=== PATIENT | male | born 1945 | race Caucasian/White ===

== ENCOUNTER 2016-11-05 16:52 | Observation (INO) ==
--- NOTE | 2016-11-05 17:02 | Emergency Department Note ---
Disposition Clinical Impression: Weakness Altered mental status Qualifiers: Altered mental status type: unspecified Qualified Code(s): R41.82 - Altered mental status, unspecified Disposition: Admitted As Inpatient Condition: Fair Time of Disposition: 19:31 General Adult HPI - General Chief complaint: ED Chest Pain Stated complaint: chest pain Time Seen by Provider: 11/05/16 16:56 Source: patient Mode of arrival: ambulatory Limitations: no limitations Nursing Notes Reviewed: Yes Vital Signs Reviewed: Yes - History of Present Illness HPI Narrative: This patient is a 71-year-old male who arrived by squad he has a past medical history of a stroke in 2009 that left him with residual left-sided weakness who presents with a complaint of worsening weakness. The patient initially stated that he had new onset of these symptoms one hour ago. However when his arrived to the emergency department she states that the patient was at home when he had a new sided weakness on the right side and she states that he has also been less talkative as usual and he has been leaning towards the right however this has been going on for at least 1 month. Therefore, originally a stroke alert was called, however with further information available through the patient's when she arrived we canceled the stroke alert due to the symptoms having been going on for longer than expected. The patient's states that she went to wake him up from a nap at p.m. this afternoon and he stated that he is not able to get up to use restroom which normally he is capable. She states last time she saw him normal was at 1 AM. However, she states that he had has not been as talkative is also been acting not himself for the past week as far as having casual conversation she states she has also been leaning more towards his right to the point where she thinks she is going to fall out of his chair and this has been going on for at least 4 weeks. She also complains of them having a cough for the past 6 months. - Related Data Home Medications Medication Instructions Recorded Confirmed Carvedilol [Coreg] 6.25 mg PO BIDWM 11/05/16 11/05/16 Citalopram [CeleXA] 20 mg PO DAILY 11/05/16 11/05/16 Clopidogrel [Plavix] 75 mg PO DAILY 11/05/16 11/05/16 Diltiazem [Cardizem] 30 mg PO Q8HR 11/05/16 11/05/16 Divalproex (24 HR) [Depakote ER 1,500 mg PO HS 11/05/16 11/05/16 (24 HR)] Famotidine [Pepcid] 20 mg PO DAILY 11/05/16 11/05/16 Fesoterodine Fumarate [Toviaz] 8 mg PO DAILY 11/05/16 11/05/16 Isosorbide MONOnitrate (24 HR) 30 mg PO DAILY 11/05/16 11/05/16 [Imdur] Nitroglycerin [Nitrostat] 0.4 mg SL AD PRN 11/05/16 11/05/16 Oxycodone HCl/Acetaminophen 1 tab PO QID 11/05/16 11/05/16 [Percocet 10-325 mg Tablet] Simvastatin [Zocor] 20 mg PO HS 11/05/16 11/05/16 metFORMIN [Glucophage] 500 mg PO BIDWM 11/05/16 11/05/16 Allergies Allergy/AdvReac Type Severity Reaction Status Date / Time lisinopril AdvReac Cough Verified 11/05/16 17:35 All systems ED: reviewed and negative except as stated. Constitutional: Reports: as per HPI. Denies: fever, chills ENT ED: Denies: hearing loss Cardiovascular: Reports: chest pain (Patient state he is having chest pain and the squad however in the emergency department the patient denies any chest pain. ). Denies: palpitations, dyspnea on exertion Respiratory: Reports: cough. Denies: dyspnea, wheezes Gastrointestinal: Denies: abdominal pain, nausea, vomiting Genitourinary: Denies: urgency, dysuria, frequency Musculoskeletal: Denies: back pain, neck pain Integumentary: Denies: rash Neurological: Denies: headache, weakness Physical Exam Patient is [id number] male here appears his stated age. He is in no acute distress. He is able to answer my questions appropriately. - General Limitations: no limitations General appearance: alert, in no apparent distress - Head Head exam: atraumatic, normocephalic, normal inspection - Eye Eye exam: Present: normal appearance, PERRL, EOMI - ENT ENT exam: normal exam, normal oropharynx, mucous membranes moist - Neck Neck exam: Present: normal inspection, full ROM, trachea midline - Chest Chest inspection: Present: normal inspection, symmetric chest wall rise. Absent : tenderness - Respiratory Respiratory exam: Present: normal lung sounds bilaterally. Absent: respiratory distress, wheezes, stridor - Cardiovascular Cardiovascular exam: Present: regular rate, normal rhythm, normal heart sounds - Abdominal Exam Abdominal exam: Present: soft, Non-Tender, normal bowel sounds - Extremities Exam Extremities exam: Present: full ROM, normal capillary refill. Absent: tenderness, pedal edema, calf tenderness - Expanded Lower Extremity Exam Neurovascular/Tendon exam: Present: normal capillary refill, motor deficit. Absent: pulse deficit, sensory deficit, extremity cold to touch, pallor - Back Exam Back exam: Present: normal inspection, full ROM. Absent: tenderness - Neurological Exam Neurological exam: Present: alert, oriented X3, CN II-XII intact - Expanded Neurological Exam Patient oriented to: Present: person, place, time Speech: Present: fluid speech Cranial nerves: EOM function (II, III, IV, ): Normal, facial sensation (V): Normal, facial palsy (VII): Normal, gag reflex (IX): Normal, spinal accessory function (XI): Normal, tongue deviation (XII): Normal Cerebellar function: finger to nose: Normal, heel to chamberlain: Normal Motor strength - LUE: 3/5 Motor strength - RUE: 5/5 Motor strength - LLE: 3/5 Motor strength - RLE: 5/5 Upper motor neuron exam: katey neglect: Absent bilaterally, pronator drift: Absent bilaterally Sensory exam upper extremity: light touch: Normal Sensory exam lower extremity: light touch: Normal DTR: bicep (L): 2+, bicep (R): 2+, patellar (L): 2+, patellar (R): 2+ Coma Scale Eye Opening: Spontaneous Coma Scale Motor Response: Obeys Commands Coma Scale Verbal Response: Oriented Coma Scale Total: 15 - Psychiatric Psychiatric exam: Present: normal mood, flat affect - Skin Skin exam: Present: warm, dry, intact, normal color Course Course Narrative: Stroke Alert called at 16:54. NIH Score - Reevaluation(s) Reevaluation #1: Stroke alert was canceled due to unknown onset time of complaint. Patient is a 71-year-old male presents to emergency department by squad. The patient initially presented with new onset left-sided extremity weakness onset at 4 PM. Patient's arrived at about 5 PM. She states that when she woke the patient up from sleep at 3 PM he was unable to get out of bed and stated that his right side is weak. Last time he was seen walking was at 1 AM this morning however his said that for the past 4 weeks the patient has been having some confusion with decreased talking and he has also been leaning towards his right side to the point where she believes is going to fall out of his chair or off his scooter. SARS is physical exam findings I only appreciated left-sided upper and lower extremity weakness that is about a 3 out of 5, however the patient states that this is a side is affected by previous stroke in 2010. Time: 18:06 Reevaluation #2: Discuss the labs and imaging results with the patient and patient's . Discussed the plan to have him admitted for further evaluation of his altered mental status and weakness. The agrees with the plan. Time: 19:30 Reevaluation #3: I spoke with Dr. Perez, we discussed the patient's case and he agrees to admit the patient. Time: 19:30 - Consultations Consultation #1: The of the patient provided me with her phone number: House: [phone] Cell [phone] Vital Signs Temperature 98.4 F 11/05/16 16:55 Pulse Rate 65 11/05/16 16:55 Respiratory Rate 20 11/05/16 16:55 Blood Pressure 135/49 11/05/16 16:55 O2 Sat by Pulse Oximetry 94 11/05/16 16:55 Temperature 97.8 F 11/05/16 20:27 Pulse Rate 60 11/05/16 20:23 Respiratory Rate 20 11/05/16 20:27 Blood Pressure 136/90 11/05/16 20:27 O2 Sat by Pulse Oximetry 97 11/05/16 19:22 Oxygen Delivery Oxygen Delivery Nasal Cannula Medical Decision Making - Medical Records Medical records reviewed: Yes I reviewed the patient's medical records. - Lab Data Lab results reviewed: Yes I reviewed the patient's lab results. Result diagrams: 11/05/16 17:05 11/05/16 17:05 Lab Results 11/05/16 11/05/16 11/05/16 Range/Units 17:05 17:05 17:05 WBC 4.9 (4.3-11.1) K/mcL RBC 4.52 (4.19-5.50) M/mcL Hgb 13.2 (12.9-16.9) g/dL Hct 38.5 (37.5-50.1) % MCV 85.2 (83.0-100.0) fL MCH 29.2 (28.0-33.3) pg MCHC 34.3 (31.6-35.5) g/dL RDW 13.1 (11.5-14.5) % Plt Count 120 L (140-400) K/mcL MPV 10.1 (9.4-12.4) fL Immature Gran % 0.2 (0-4) % Seg Neutrophils % 63.2 % Lymphocytes % 20.2 % Monocytes % 13.2 % Eosinophils % 2.6 % Basophils % 0.6 % Neutrophils # 3.1 (1.6-8.9) K/mcL Lymphocytes # 1.0 (0.6-4.6) K/mcL Monocytes # 0.7 (0.0-1.3) K/mcL Eosinophils # 0.1 (0.0-0.6) K/mcL Basophils # 0.0 (0.0-0.2) K/mcL PT (9.4-12.1) Seconds INR APTT (26.0-36.0) Seconds Sodium 138 (136-145) mEq/L Potassium 4.6 H (3.5-4.5) mEq/L Chloride 106 (98-109) mEq/L Carbon Dioxide 24 (19-29) mEq/L BUN 19 (8-26) mg/dL Creatinine 1.01 (0.72-1.25) mg/dL Est GFR ( Amer) > 60 (> 60) Est GFR (Non-Af Amer) > 60 (> 60) BUN/Creatinine Ratio 19 (6-26) Glucose 94 (70-99) mg/dL Calculated Osmolality 288 (280-300) Calcium 8.8 (8.6-10.8) mg/dL Troponin I 0.00 (0-0.03) ng/mL Urine Color (Yellow) Urine Clarity (Clear) Urine pH (5.0-8.0) pH Units Ur Specific [place] (1.010-1.025) Urine Protein (Neg-Trace) mg/dL Urine Glucose (UA) (Normal) mg/dL Urine Ketones (Negative) mg/dL Urine Blood (Negative) Urine Nitrite (Negative) Urine Bilirubin (Negative) Urine Urobilinogen (Normal) mg/dL Ur Leukocyte Esterase (Negative) Ur Culture Indicated? (NO) 11/05/16 11/05/16 Range/Units 17:23 18:32 WBC (4.3-11.1) K/mcL RBC (4.19-5.50) M/mcL Hgb (12.9-16.9) g/dL Hct (37.5-50.1) % MCV (83.0-100.0) fL MCH (28.0-33.3) pg MCHC (31.6-35.5) g/dL RDW (11.5-14.5) % Plt Count (140-400) K/mcL MPV (9.4-12.4) fL Immature Gran % (0-4) % Seg Neutrophils % % Lymphocytes % % Monocytes % % Eosinophils % % Basophils % % Neutrophils # (1.6-8.9) K/mcL Lymphocytes # (0.6-4.6) K/mcL Monocytes # (0.0-1.3) K/mcL Eosinophils # (0.0-0.6) K/mcL Basophils # (0.0-0.2) K/mcL PT 12.1 (9.4-12.1) Seconds INR 1.1 APTT 25.2 L (26.0-36.0) Seconds Sodium (136-145) mEq/L Potassium (3.5-4.5) mEq/L Chloride (98-109) mEq/L Carbon Dioxide (19-29) mEq/L BUN (8-26) mg/dL Creatinine (0.72-1.25) mg/dL Est GFR ( Amer) (> 60) Est GFR (Non-Af Amer) (> 60) BUN/Creatinine Ratio (6-26) Glucose (70-99) mg/dL Calculated Osmolality (280-300) Calcium (8.6-10.8) mg/dL Troponin I (0-0.03) ng/mL Urine Color Yellow (Yellow) Urine Clarity Clear (Clear) Urine pH 7.0 (5.0-8.0) pH Units Ur Specific [place] 1.018 (1.010-1.025) Urine Protein Negative (Neg-Trace) mg/dL Urine Glucose (UA) Normal (Normal) mg/dL Urine Ketones Trace H (Negative) mg/dL Urine Blood Negative (Negative) Urine Nitrite Negative (Negative) Urine Bilirubin Negative (Negative) Urine Urobilinogen 2.0 H (Normal) mg/dL Ur Leukocyte Esterase Negative (Negative) Ur Culture Indicated? NO (NO) - Radiology Data Radiology results reviewed: Yes I reviewed the patient's radiology results. Head CT 11/05/16 16:59 IMPRESSION: 1. Encephalomalacia within the right middle cerebral artery distribution. 2. No acute abnormality detected. 3. Extensive periventricular low-attenuation, which presumably is secondary to chronic small vessel ischemic disease. No comparisons are available. Findings were discussed with Dr. Gayle At 2:16 pm on 11/05/2016. D/ / Vaibhav Higginbotham MD / Vaibhav Higginbotham MD Interpreting Provider: Vaibhav Higginbotham MD Chest X-Ray 11/05/16 18:00 IMPRESSION: No acute cardiopulmonary disease. D/ / 11/05/2016 18:17:12 Ray Pacheco MD / raven Interpreting Provider: Ray Pacheco MD - EKG Data EKG #1 EKG attestation: Yes I reviewed and interpreted this EKG. EKG results narrative: Interpreted this EKG. Performed at 16:54. EKG is electronic atrial pacemaker. Rate of 60 bpm. Borderline left axis deviation. No signs of ST elevation or depression or Q waves. Attestation Statement - Attestation Attestation: I examined this patient and my medical decision-making was reviewed with the Resident Physician. I agree with the documented findings, disposition and treatment plan as described except to the extent set forth below. Patient presents to the emergency department that she complete the left side weakness. Patient states one hour prior to his arrival here he was walking to the bathroom. It is sudden onset of increased weakness in the left side. He has had this stroke on that side several years ago. He has a chronic weakness in that arm and leg but states it got worse. Patient denies chest pain. Denies dizziness. Examination shows him awake alert in no acute distress. He does have visible weakness in the left side. He complains of a sensory discrepancy. He does drift her to bed in upper and lower extremities. It is difficult to ascertain if this is all new chronic worsening of his chronic weakness. Plan. The patient states the dyspnea. Stroke alert was called. CT and neuro consult pending. Head CT does not show an acute process. He has encephalomalacia on the right side in the MCA distribution from prior stroke. Neuro consult pending. The patient's arrived after stroke alert was called. She states the symptoms of been present for days. She states she was okay when he went to bed around 1 AM but he did not get out of bed until after 3 today and she had awaken him up. The symptoms were present upon awakening. They did not happen while he was walking to the bathroom. He complained of right-sided weakness to her. The patient admitted for further workup. Patient would not be a TPA candidate as his symptoms appear chronic and his last known well was over 12 hours ago. 35 minutes of critical care exclusive of separately billable procedures.
[2016-11-05 17:14] LABS: Basophils % 0.6 %; Eosinophils # 0.1 K/mcL (0.0-0.6); Eosinophils % 2.6 %; Hematocrit 38.5 % (37.5-50.1); Hemoglobin 13.2 g/dL (12.9-16.9); Immature Granulocytes % 0.2 % (0-4); Lymphocytes % 20.2 %; Mean Corpuscular HGB Conc 34.3 g/dL (31.6-35.5); Mean Corpuscular Hemoglobin 29.2 pg (28.0-33.3); Mean Corpuscular Volume 85.2 fL (83.0-100.0); Mean Platelet Volume 10.1 fL (9.4-12.4); Monocytes # 0.7 K/mcL (0.0-1.3); Monocytes % 13.2 %; Neutrophils # 3.1 K/mcL (1.6-8.9); Platelet Count 120 K/mcL (140-400); Red Blood Count 4.52 M/mcL (4.19-5.50); Red Cell Distribution Width 13.1 % (11.5-14.5); Segmented Neutrophils % 63.2 %
[2016-11-05 17:27] LABS: BUN/Creatinine Ratio 19 (6-26); Blood Urea Nitrogen 19 mg/dL (8-26); Calcium 8.8 mg/dL (8.6-10.8); Carbon Dioxide 24 mEq/L (19-29); Chloride 106 mEq/L (98-109); Glucose 94 mg/dL (70-99); Osmolality,Calculated 288 (280-300); Potassium 4.6 mEq/L (3.5-4.5); Sodium 138 mEq/L (136-145); eGFR For African Americans > 60 (> 60); eGFR For Non-African Americans > 60 (> 60)
[2016-11-05 17:40] LABS: INR 1.1; Prothrombin Time 12.1 Seconds (9.4-12.1)
[2016-11-05 17:42] LABS: Activated Partial Thrombo Time 25.2 Seconds (26.0-36.0)
[2016-11-05 18:52] LABS: Bilirubin,Urine Negative (Negative); Blood,Urine Negative (Negative); Clarity,Urine Clear (Clear); Color,Urine Yellow (Yellow); Glucose,Urine (UA) Normal (Normal); Ketones,Urine Trace mg/dL (Negative); Leukocyte Esterase,Urine Negative (Negative); Nitrite,Urine Negative (Negative); Protein,Urine Negative (Neg-Trace); Specific Gravity,Urine 1.018 (1.010-1.025)
[2016-11-05] MEDS ORDERED: Acetaminophen 325 MG TABLET PO PRN (20:31)
[2016-11-05] MEDS ORDERED: *HR* Morphine 2 MG/ML SYRINGE IVP PRN (20:31)
[2016-11-05] MEDS ORDERED: Naloxone 0.4 MG/ML INJ IVP PRN (20:31)
[2016-11-05] MEDS ORDERED: Nitroglycerin 0.4 MG TAB.SUBL SL PRN (20:35)
[2016-11-05] MEDS ORDERED: D5% in Water 1,000 ML IVC PRN (20:43)
[2016-11-05] MEDS ORDERED: Dextrose Gel 15 GM PO PRN ×2 (20:43)
[2016-11-05] MEDS ORDERED: *HR* Dextrose 50 % in Water (Syg) 50 ML SYRINGE IVP PRN (20:43)
--- NOTE | 2016-11-05 20:55 | Internal Med History&Physical ---
Date of Encounter: 11/05/16 Time of Encounter: 20:00 Assessment and Plan (1) Altered mental status Current visit: Yes Status: Acute Patient presents with acute AMS related to his current symptoms of possible CVA. On examination, patient is alert and oriented with only mild difficulty in responding which appears to be more related to possible hearing impairment. Patient has left-sided weakness, especially in his UE on exam. The remainder of the patient's neurological examination is unremarkable at this time. NIHSS scale to be followed with padded bed rails and bedside swallow evaluation. Patient will be NPO at the present time. Heparin for DVT prophylaxis. Continuous cardiac telemetry and supplemental O2. Will hold patient's BP medications to allow for permissive HTN. Qualifiers: Altered mental status type: transient alteration of awareness Qualified Code(s): R40.4 - Transient alteration of awareness (2) Left-sided weakness Current visit: Yes Status: Acute Patient presents with acute left-sided weakness that he reports has worsened since this afternoon. On examination, the patient has marked left-sided weakness , especially in the UE. NIHSS protocol to be followed with bedside padding and bedside swallow evaluation. Patient will also be placed as falls precautions/up with assist/bed rest with bedside commode with assist only due to left-sided weakness. Consults for PT, OT, speech, and pharmacy placed. (3) HTN (hypertension) Current visit: Yes Status: Chronic Patient presents with history of chronic hypertension. Patient's BP on admission was 135/49 on first take, then 150/81 on follow-up. We will hold patient's carvedilol and cardizem to allow for permissive hypertension related to possible stroke. Qualifiers: Hypertension type: essential hypertension Qualified Code(s): I10 - Essential (primary) hypertension (4) HLD (hyperlipidemia) Current visit: Yes Status: Chronic Patient presents with history of chronic hyperlipidemia. Lipid panel ordered. Will continue patient's simvastatin. Qualifiers: Hyperlipidemia type: pure hypercholesterolemia Qualified Code(s): E78.00 - Pure hypercholesterolemia, unspecified; E78.0 - Pure hypercholesterolemia (5) Diabetes Current visit: Yes Status: Chronic Patient presents with history of chronic diabetes controlled by oral hyperglycemics. Will hold patient's metformin and use low-dose correction insulin coverage with hypoglycemic protocol. Blood glucose ACHS. Qualifiers: Diabetes mellitus type: type 2 Diabetes mellitus complication status: without complication Diabetes mellitus fpc insulin use: without fpc use Qualified Code(s): E11.9 - Type 2 diabetes mellitus without complications (6) DVT prophylaxis Current visit: Yes Status: Acute Patient to be placed on DVT prophylaxis due to current admission protocol and bed rest status. Heparin 5,000 units SQ Q8 ordered. Internal Medicine - H&P: HPI Chief complaint: Altered Mental Status/Left-Sided Weakness Admitted From: Emergency Dept Plans for Post Hospital Care: Home History of present illness: Mr. Kovacs is a 71 year old male who presents from the ED with chief complaint of altered mental status and left-sided weakness which he states has worsened since 4 p.m. today. Patient reports that his weakness is left-sided only and does not involve his right side. Mr. Kovacs reports that he has suffered a series of TIAs in the past before suffering from a large stroke in 2009. Patient denies any chest pain, shortness of breath, recent illness, fever, chills, changes in vision, abdominal pain, diarrhea, constipation, pre-syncope, or syncope. Patient's medical history includes TIAs, stroke/CVA, MO (which he reports happened years ago), diabetes which is controlled with oral hyperglycemics, HTN, and HLD. Upon examination, patient is alert and oriented but has some difficulty with mild speech slurring. Patient is also notably weaker in his right UE on exam. The rest of the patient's neurological exam is unremarkable. Mr. Kovacs is at moderate risk for CVA and/or cardiac event based on his current symptomology and risk factors of previous stroke and MO, HTN, and HLD and will be placed as observation status with consult orders for pharmacy, speech, PT, and OT placed. NIHSS scale to be followed with bedside swallow evaluation and NPO status. We will hold the patient's HTN medications to allow for permissive HTN at the present time. Patient to be placed on continuous cardiac telemetry with supplemental O2 and continuous SpO2 monitoring as well as safety precautions due to his left-sided weakness. Patient to be monitored closely. Time spent with patient > 40 minutes. Past Med Surg Social Fam HX - Past Medical History Source: patient Medical history: CVA, diabetes, hyperlipidemia, hypertension, myocardial infarction, TIA Psychiatric history: no psych history - Past Surgical History Surgical History: orthopedic, other (Bilateral hip replacements) - Social History Smoking Status: Light tobacco smoker Packs per day: Cigars - amount unclear Smokeless Tobacco Status: No Alcohol use: none Drug use: none Current living situation: Home, With Family Activity Level: Independent ambulation, Uses cane/walker Recent Out of Country Travel Within the Last 8 Weeks: No Exposure or Possible Exposure to Illness During Travel: No - Family History Father Race: Family Member Ethnicity: Non- Living Status: Age at : 57 Cause of : Emphysema Hx Family Respiratory Disorders: Yes (Emphysema, asthma) Hx Family Endocrine Disorder: Yes (DM) Mother Race: Family Member Ethnicity: Non- Living Status: Age at : 55 Cause of : Cancer Hx Family Respiratory Disorders: Yes (Asthma, emphysema) Hx Family Cancer: Yes Brother Race: Family Member Ethnicity: Non- Living Status: Still Living Hx Family Cancer: Yes (Brain tumor) Sister Race: Family Member Ethnicity: Non- Living Status: Cause of : Liver failure Hx Family Cardiac Disorders: Yes (HD) Hx Family Endocrine Disorder: Yes (DM) Internal Medicine - H&P: Meds Carvedilol [Coreg] 6.25 mg PO BIDWM 11/05/16 [History] Citalopram [CeleXA] 20 mg PO DAILY 11/05/16 [History] Clopidogrel [Plavix] 75 mg PO DAILY 11/05/16 [History] Diltiazem [Cardizem] 30 mg PO Q8HR 11/05/16 [History] Divalproex (24 HR) [Depakote ER (24 HR)] 1,500 mg PO HS 11/05/16 [History] Famotidine [Pepcid] 20 mg PO DAILY 11/05/16 [History] Fesoterodine Fumarate [Toviaz] 8 mg PO DAILY 11/05/16 [History] Isosorbide MONOnitrate (24 HR) [Imdur] 30 mg PO DAILY 11/05/16 [History] Nitroglycerin [Nitrostat] 0.4 mg SL AD PRN 11/05/16 [History] Oxycodone HCl/Acetaminophen [Percocet 10-325 mg Tablet] 1 tab PO QID 11/05/16 [ History] Simvastatin [Zocor] 20 mg PO HS 11/05/16 [History] metFORMIN [Glucophage] 500 mg PO BIDWM 11/05/16 [History] Allergies lisinopril Adverse Reaction (Verified 11/05/16 17:35) Cough All Systems PM: A 10-system review of systems was performed and is negative for pertinent findings except as documented above in the HPI. - Constitutional Constitutional: as per HPI, weakness (Left-sided which began today), no chills, no fever(s), no night sweats - EENT Eyes: no change in vision, no discharge, no pain, no photophobia Ears: no ear discharge, no ear pain, no tinnitus Nose, mouth and throat: no dysphagia, no nasal discharge, no neck pain, no sore throat - Breasts Breasts: as per HPI - Cardiovascular Cardiovascular ROS IM: no chest pain, no diaphoresis, no dyspnea, no lightheadedness, no palpitations, no syncope - Respiratory Respiratory: no cough, no dyspnea, no wheezing, no excessive phlegm production - Gastrointestinal Gastrointestinal: no abdominal pain, no diarrhea, no hematemesis, no hematochezia, no melena, no nausea, no vomiting - Genitourinary Genitourinary ROS male: as per HPI - Musculoskeletal Musculoskeletal ROS IM: no numbness, no tingling - Integumentary Integumentary IM: no rash, no unusual bruising - Neurological Neurological ROS: as per HPI, disequilibrium, lack of coordination, weakness ( Left-sided) - Psychiatric Psychiatric: as per HPI - Endocrine Endocrine IM: as per HPI - Hematologic/Lymphatic Hematologic/Lymphatic: no easy bruising - Allergic/Immunologic Allergic/Immunologic: as per HPI - Constitutional Vitals: Temp Pulse Resp BP Pulse Ox 97.8 F 60 20 136/90 97 11/05/16 20:27 11/05/16 20:23 11/05/16 20:27 11/05/16 20:27 11/05/16 19:22 General appearance: Present: cooperative, disheveled, A&O X 3, pleasant, no acute distress, obese, answers questions appropriately - Head Head exam: Present: atraumatic, normocephalic - Eye Eye exam: Present: PERRL, conjuntiva pink, sclera anicteric Pupils: Present: PERRL - ENT ENT exam: Present: normal exam, normal external ear exam - Neck Neck exam general surgery: Present: supple, trachea midline. Absent: lymphadenopathy - Respiratory Respiratory exam: Present: CTAB. Absent: accessory muscle use, rales, rhonchi, wheezes - Cardiovascular Cardiovascular exam: Present: RRR, +S1, +S2. Absent: diastolic murmur, gallop, rubs, systolic murmur - GI/Abdominal GI/Abdominal exam: Present: normal bowel sounds, soft, no peritoneal signs. Absent: distended, tenderness - Rectal Rectal exam: Present: deferred - Additional comments: exam deferred. - Extremities Exam Extremities exam: Present: warm, radial pulses palpable and symetrical. Absent : calf tenderness, cyanotic, pedal edema - Back Exam Back exam: Present: normal inspection - Neurological Exam Neurological exam: Present: CN II-XII intact, oriented X3, no focal deficits, pronater drift (Left-sided UE), speech deficit (Mild slurring). Absent: facial droop - Psychiatric Psychiatric exam: Present: flat affect - Skin Skin exam: Present: dry, intact Internal Med - H&P Results - Labs CBC & Chem 7: 11/05/16 17:05 11/05/16 17:05 - EKG Data Prior EKG available for review: no EKG comments: 11/05/16 21:02 EKG dated 11/05/16 shows electronic atrial pacemaker with borderline left axis deviation. - Diagnostic Studies Chest x-ray Additional comments: Impressions Chest X-Ray 11/05/16 18:00 IMPRESSION: No acute cardiopulmonary disease. D/ / 11/05/2016 18:17:12 Ray Pacheco MD / raven Interpreting Provider: Ray Pacheco MD CT scan - head Additional comments: Impressions Head CT 11/05/16 16:59 IMPRESSION: 1. Encephalomalacia within the right middle cerebral artery distribution. 2. No acute abnormality detected. 3. Extensive periventricular low-attenuation, which presumably is secondary to chronic small vessel ischemic disease. No comparisons are available. Findings were discussed with Dr. Gayle At 2:16 pm on 11/05/2016. D/ / Vaibhav Higginbotham MD / Vaibhav Higginbotham MD Interpreting Provider: Vaibhav Higginbotham MD
--- NOTE | 2016-11-05 21:28 | Event Note ---
Date of Encounter: 11/05/16 Time of Encounter: 21:27 Patient seen and examined with nurse practitioner. Patients with history of right CVA and residual left-sided weakness was brought to the emergency room by his after he was noted to have slurring of his speech and leaning towards the right side. Patient is a poor historian. Neural exam consistent with left- sided weakness related to prior stroke. MRI of the brain will be performed to look for new stroke. Onset of symptoms 1 PM 7 hours prior to my interview. Observation admission
[2016-11-05] MEDS: Insulin LISPRO 300 UNITS/3 ML VIAL SQ SCH (22:30)
[2016-11-06] MEDS: *HR* Heparin 5,000 UNIT/ML VIAL SQ SCH ×4 (00:29→22:31)
[2016-11-06] MEDS: Divalproex (24 HR) 500 MG TABLET PO SCH ×2 (00:29→22:34)
[2016-11-06] MEDS: *HR* HYDROcodone/Acet 5/325 mg TABLET PO PRN (05:55)
[2016-11-06 08:36] LABS: Basophils % 0.5 %; Eosinophils # 0.2 K/mcL (0.0-0.6); Eosinophils % 3.5 %; Hematocrit 38.1 % (37.5-50.1); Hemoglobin 13.2 g/dL (12.9-16.9); Immature Granulocytes % 0.2 % (0-4); Lymphocytes # 1.2 K/mcL (0.6-4.6); Lymphocytes % 29.1 %; Mean Corpuscular HGB Conc 34.6 g/dL (31.6-35.5); Mean Corpuscular Hemoglobin 29.5 pg (28.0-33.3); Monocytes # 0.6 K/mcL (0.0-1.3); Monocytes % 13.9 %; Neutrophils # 2.2 K/mcL (1.6-8.9); Platelet Count 117 K/mcL (140-400); Red Blood Count 4.48 M/mcL (4.19-5.50); Red Cell Distribution Width 13.2 % (11.5-14.5); Segmented Neutrophils % 52.8 %
[2016-11-06 08:56] LABS: BUN/Creatinine Ratio 22 (6-26); Blood Urea Nitrogen 19 mg/dL (8-26); Calcium 8.8 mg/dL (8.6-10.8); Carbon Dioxide 26 mEq/L (19-29); Chloride 107 mEq/L (98-109); Chol/HDL Ratio 3.9 (0-4.9); Cholesterol 117 mg/dL (< 200); Glucose 100 mg/dL (70-99); HDL Cholesterol 30 mg/dL (40-59); LDL Cholesterol,Calculated 61 mg/dL (0-99); Magnesium 2.4 mg/dL (1.6-2.6); Osmolality,Calculated 292 (280-300); Potassium 4.6 mEq/L (3.5-4.5); Sodium 140 mEq/L (136-145); Triglycerides 130 mg/dL (< 150); eGFR For African Americans > 60 (> 60); eGFR For Non-African Americans > 60 (> 60)
[2016-11-06] MEDS: Isosorbide MONOnitrate (24 HR) 30 MG TAB.ER.24H PO SCH (09:40)
[2016-11-06] MEDS: Insulin LISPRO 300 UNITS/3 ML VIAL SQ SCH ×4 (09:40→22:32)
[2016-11-06] MEDS: FESOTERODINE FUMARATE 8 MG PO SCH (09:53)
--- NOTE | 2016-11-06 16:04 | Internal Med Progress Note ---
Date of Encounter: 11/06/16 Time of Encounter: 16:02 - Assessment and plan (1) CVA (cerebral vascular accident) Current Visit: Yes Status: Acute Assessment and plan: hx multiple CVAs with residual left sided weakness. Presented with confusion and worsening left sided weakness. Head CT with encephalomalacia of right middle cerebral artery distribution, chronic small vessel ischemic disease, otherwise no acute abnormality detected. LDL 117. Cont home Plavix. Brain MRI, carotid dopplers, echo, Hgb A1c pending. Consult Neurology if needed Qualifiers: CVA mechanism: unspecified Qualified Code(s): I63.9 - Cerebral infarction, unspecified (2) HTN (hypertension) Current Visit: Yes Status: Chronic Assessment and plan: per hx. BP soft/borderline while inpatient. Cont home BB, CCB with hold parameters. Monitor BP and titrate PRN Qualifiers: Hypertension type: essential hypertension Qualified Code(s): I10 - Essential (primary) hypertension (3) Diabetes Current Visit: Yes Status: Chronic Assessment and plan: per hx. Control unknown. Holding home metformin. SSI while inpatient. Monitor blood sugars and titrate PRN. Hgb A1c pending Qualifiers: Diabetes mellitus type: type 2 Diabetes mellitus complication status: without complication Diabetes mellitus supervisor filter assembly insulin use: without supervisor filter assembly use Qualified Code(s): E11.9 - Type 2 diabetes mellitus without complications (4) DVT prophylaxis Current Visit: Yes Status: Acute Assessment and plan: heparin - Time Spent With Patient 25 - 35 minutes - Subjective Interval history: Patient is new to me; information obtained from chart review and patient report. Seen and examined at bedside; says he feels okay. Says he has residual left sided weakness from prior strokes. No CP, no SOB - Constitutional Vitals: Temp Pulse Resp BP Pulse Ox 98.0 F 63 17 103/66 96 11/06/16 15:44 11/06/16 15:44 11/06/16 15:44 11/06/16 15:44 11/06/16 15:44 General appearance: Present: cooperative, disheveled, A&O X 3, pleasant, no acute distress, obese, answers questions appropriately - Head Head exam: Present: atraumatic, normocephalic - Eye Eye exam: Present: PERRL, conjuntiva pink, sclera anicteric Pupils: Present: PERRL - Neck Neck exam general surgery: Present: supple, trachea midline. Absent: lymphadenopathy - Respiratory Respiratory exam: Present: CTAB. Absent: accessory muscle use, rales, rhonchi, wheezes - Cardiovascular Cardiovascular exam: Present: RRR, +S1, +S2. Absent: diastolic murmur, gallop, rubs, systolic murmur - GI/Abdominal GI/Abdominal exam: Present: normal bowel sounds, soft, no peritoneal signs. Absent: distended, tenderness - Extremities Exam Extremities exam: Present: warm, radial pulses palpable and symetrical. Absent : calf tenderness, cyanotic, pedal edema - Neurological Exam Neurological exam: Present: CN II-XII intact, oriented X3. Absent: strengths equal and symetr throughout (left arem and left lef weakness. Strength 3-4/5 ), pronater drift, facial droop, speech deficit - Skin Skin exam: Present: dry, intact Internal Medicine: Result - Labs CBC & Chem 7: 11/06/16 08:10 11/06/16 08:10 Labs: Short CBC 11/06/16 Range/Units 08:10 WBC 4.2 L (4.3-11.1) K/mcL Hgb 13.2 (12.9-16.9) g/dL Hct 38.1 (37.5-50.1) % Plt Count 117 L (140-400) K/mcL Neutrophils # 2.2 (1.6-8.9) K/mcL BMP 11/06/16 08:10 Sodium 140 Potassium 4.6 H Chloride 107 Carbon Dioxide 26 BUN 19 Creatinine 0.87 Glucose 100 H Calcium 8.8 Cardiac Enzymes 11/06/16 Range/Units 08:10 Troponin I 0.00 (0-0.03) ng/mL - ABG Interpretation ABG results: PT/INR, D-dimer PT 12.1 Seconds (9.4-12.1) 11/05/16 17:23 Consult Discharge Plan - Plan Referrals: Gianluca Lynch MD [Primary Care Provider] -
[2016-11-07 03:00] LABS: Hemoglobin A1C 6.5 %
[2016-11-07 03:06] LABS: Alanine Aminotransferase 11 Units/L (0-55); Albumin 3.1 g/dL (3.5-5.0); Albumin/Globulin Ratio 0.9 (1.1-2.2); Alkaline Phosphatase 62 Units/L (38-126); Aspartate Amino Transferase 19 Units/L (5-34); BUN/Creatinine Ratio 24 (6-26); Bilirubin,Total 0.4 mg/dL (0.2-1.2); Blood Urea Nitrogen 21 mg/dL (8-26); Calcium 8.5 mg/dL (8.6-10.8); Carbon Dioxide 28 mEq/L (19-29); Chloride 105 mEq/L (98-109); Globulin 3.4 g/dL (2.4-3.5); Glucose 112 mg/dL (70-99); Osmolality,Calculated 290 (280-300); Potassium 4.6 mEq/L (3.5-4.5); Sodium 138 mEq/L (136-145); Total Protein 6.5 g/dL (6.0-8.3); eGFR For African Americans > 60 (> 60); eGFR For Non-African Americans > 60 (> 60)
[2016-11-07] MEDS: *HR* Heparin 5,000 UNIT/ML VIAL SQ SCH ×3 (05:06→22:53)
[2016-11-07] MEDS: Isosorbide MONOnitrate (24 HR) 30 MG TAB.ER.24H PO SCH (09:03)
[2016-11-07] MEDS: FESOTERODINE FUMARATE 8 MG PO SCH (09:05)
[2016-11-07] MEDS: Insulin LISPRO 300 UNITS/3 ML VIAL SQ SCH ×4 (09:14→22:50)
--- NOTE | 2016-11-07 14:41 | Internal Med Progress Note ---
Date of Encounter: 11/07/16 Time of Encounter: 14:38 - Assessment and plan (1) CVA (cerebral vascular accident) Current Visit: Yes Status: Acute Assessment and plan: Patient has history of multiple CVAs with residual left sided weakness. Presented with confusion and worsening left sided weakness. Head CT with encephalomalacia of right middle cerebral artery distribution, chronic small vessel ischemic disease, otherwise no acute abnormality detected. Echocardiogram showed LVEF 65% with mild LV diastolic dysfunction, mild to moderate pulmonary regurgitation. Carotid duplex showed Left proximal ICA navarrete a moderate 40-59% stenosis. Right carotid system has nonstenotic plaque. MRI pending as we are obtaining information on patient's pacemaker. Records requested from [place]. Cont home Plavix and zocor. Qualifiers: CVA mechanism: unspecified Qualified Code(s): I63.9 - Cerebral infarction, unspecified (2) Diabetes Current Visit: Yes Status: Chronic Assessment and plan: Well controlled as evidenced by A1c 6.5. hold metformin check blood sugars ACHS Sliding scale correction dose ACHS hypoglycemic protocol. Qualifiers: Diabetes mellitus type: type 2 Diabetes mellitus complication status: without complication Diabetes mellitus mcc insulin use: without rat exterminator use Qualified Code(s): E11.9 - Type 2 diabetes mellitus without complications (3) HTN (hypertension) Current Visit: Yes Status: Chronic Assessment and plan: Continue home doses of BB, CCB with hold parameters. Qualifiers: Hypertension type: essential hypertension Qualified Code(s): I10 - Essential (primary) hypertension (4) DVT prophylaxis Current Visit: Yes Status: Acute Assessment and plan: heparin 5000u sq TID - Subjective Interval history: Patient states he still feels as though left side is weaker than baseline, but otherwise, feels well without pain, shortness of breath. - Constitutional Vitals: Temp Pulse Resp BP Pulse Ox 98.2 F 60 16 94/55 95 11/07/16 11:09 11/07/16 11:09 11/07/16 11:09 11/07/16 11:11/07/16 11:09 General appearance: Present: cooperative, disheveled, A&O X 3, pleasant, no acute distress, obese, answers questions appropriately - Head Head exam: Present: atraumatic, normocephalic - Eye Eye exam: Present: PERRL, conjuntiva pink, sclera anicteric Pupils: Present: PERRL - Neck Neck exam general surgery: Present: supple, trachea midline. Absent: lymphadenopathy - Respiratory Respiratory exam: Present: CTAB. Absent: accessory muscle use, rales, rhonchi, wheezes - Cardiovascular Cardiovascular exam: Present: RRR, +S1, +S2. Absent: diastolic murmur, gallop, rubs, systolic murmur - GI/Abdominal GI/Abdominal exam: Present: normal bowel sounds, soft, no peritoneal signs. Absent: distended, tenderness - Extremities Exam Extremities exam: Present: warm, radial pulses palpable and symetrical. Absent : calf tenderness, cyanotic, pedal edema - Neurological Exam Neurological exam: Present: CN II-XII intact, oriented X3, no focal deficits. Absent: strengths equal and symetr throughout (LUE weakness, LLE weakness), pronater drift, facial droop, speech deficit - Skin Skin exam: Present: dry, intact Internal Medicine: Result - Labs CBC & Chem 7: 11/06/16 08:10 11/07/16 02:39 Labs: BMP 11/07/16 02:39 Sodium 138 Potassium 4.6 H Chloride 105 Carbon Dioxide 28 BUN 21 Creatinine 0.89 Glucose 112 H Calcium 8.5 L Liver Function 11/07/16 Range/Units 02:39 Total Bilirubin 0.4 (0.2-1.2) mg/dL AST 19 (5-34) Units/L ALT 11 (0-55) Units/L Alkaline Phosphatase 62 (38-126) Units/L Albumin 3.1 L (3.5-5.0) g/dL All Lab Results (24 Hours) 11/06/16 11/06/16 11/07/16 Range/Units 16:10 20:32 02:39 Sodium 138 (136-145) mEq/L Potassium 4.6 H (3.5-4.5) mEq/L Chloride 105 (98-109) mEq/L Carbon Dioxide 28 (19-29) mEq/L BUN 21 (8-26) mg/dL Creatinine 0.89 (0.72-1.25) mg/dL Est GFR ( Amer) > 60 (> 60) Est GFR (Non-Af Amer) > 60 (> 60) BUN/Creatinine Ratio 24 (6-26) Glucose 112 H (70-99) mg/dL POC Glucose 205 H 197 H (58-89) Est Mean Plasma Glucose mg/dl Hemoglobin A1c ( - 5.6) % Calculated Osmolality 290 (280-300) Calcium 8.5 L (8.6-10.8) mg/dL Total Bilirubin 0.4 (0.2-1.2) mg/dL AST 19 (5-34) Units/L ALT 11 (0-55) Units/L Alkaline Phosphatase 62 (38-126) Units/L Serum Total Protein 6.5 (6.0-8.3) g/dL Albumin 3.1 L (3.5-5.0) g/dL Globulin 3.4 (2.4-3.5) g/dL Albumin/Globulin Ratio 0.9 L (1.1-2.2) 11/07/16 11/07/16 Range/Units 02:39 09:13 Sodium (136-145) mEq/L Potassium (3.5-4.5) mEq/L Chloride (98-109) mEq/L Carbon Dioxide (19-29) mEq/L BUN (8-26) mg/dL Creatinine (0.72-1.25) mg/dL Est GFR ( Amer) (> 60) Est GFR (Non-Af Amer) (> 60) BUN/Creatinine Ratio (6-26) Glucose (70-99) mg/dL POC Glucose 112 H (58-89) Est Mean Plasma Glucose 140 mg/dl Hemoglobin A1c 6.5 H ( - 5.6) % Calculated Osmolality (280-300) Calcium (8.6-10.8) mg/dL Total Bilirubin (0.2-1.2) mg/dL AST (5-34) Units/L ALT (0-55) Units/L Alkaline Phosphatase (38-126) Units/L Serum Total Protein (6.0-8.3) g/dL Albumin (3.5-5.0) g/dL Globulin (2.4-3.5) g/dL Albumin/Globulin Ratio (1.1-2.2) - ABG Interpretation ABG results: PT/INR, D-dimer PT 12.1 Seconds (9.4-12.1) 11/05/16 17:23 - Diagnostic Studies CT scan - head Additional comments: Head CT 11/05/16 16:59 IMPRESSION: 1. Encephalomalacia within the right middle cerebral artery distribution. 2. No acute abnormality detected. 3. Extensive periventricular low-attenuation, which presumably is secondary to chronic small vessel ischemic disease. No comparisons are available. Findings were discussed with Dr. Gayle At 2:16 pm on 11/05/2016. D/ / Vaibhav Higginbotham MD / Vaibhav Higginbotham MD Interpreting Provider: Vaibhav Higginbotham MD Chest x-ray Additional comments: Chest X-Ray 11/05/16 18:00 IMPRESSION: No acute cardiopulmonary disease. D/ / 11/05/2016 18:17:12 Ray Pacheco MD / raven Interpreting Provider: Ray Pacheco MD Consult Discharge Plan - Plan Referrals: Gianluca Lynch MD [Primary Care Provider] -
[2016-11-07] MEDS: Divalproex (24 HR) 500 MG TABLET PO SCH (22:54)
[2016-11-08] MEDS: *HR* Heparin 5,000 UNIT/ML VIAL SQ SCH ×2 (04:07→12:23)
[2016-11-08 04:20] LABS: Hemoglobin A1C 6.5 %
[2016-11-08 04:27] LABS: Alanine Aminotransferase 10 Units/L (0-55); Albumin 3.2 g/dL (3.5-5.0); Albumin/Globulin Ratio 0.9 (1.1-2.2); Alkaline Phosphatase 65 Units/L (38-126); Aspartate Amino Transferase 14 Units/L (5-34); BUN/Creatinine Ratio 19 (6-26); Bilirubin,Total 0.3 mg/dL (0.2-1.2); Blood Urea Nitrogen 19 mg/dL (8-26); Calcium 8.8 mg/dL (8.6-10.8); Carbon Dioxide 27 mEq/L (19-29); Chloride 105 mEq/L (98-109); Globulin 3.6 g/dL (2.4-3.5); Glucose 227 mg/dL (70-99); Osmolality,Calculated 297 (280-300); Potassium 3.9 mEq/L (3.5-4.5); Sodium 139 mEq/L (136-145); Total Protein 6.8 g/dL (6.0-8.3); eGFR For African Americans > 60 (> 60); eGFR For Non-African Americans > 60 (> 60)
[2016-11-08] MEDS: Isosorbide MONOnitrate (24 HR) 30 MG TAB.ER.24H PO SCH (07:40)
[2016-11-08] MEDS: Insulin LISPRO 300 UNITS/3 ML VIAL SQ SCH ×2 (07:41→12:17)
[2016-11-08] MEDS: FESOTERODINE FUMARATE 8 MG PO SCH (07:41)
[2016-11-08] MEDS: *HR* HYDROcodone/Acet 5/325 mg TABLET PO PRN (07:47)
[2016-11-08 11:43] LABS: CK-MB (CK isoenzymes) 0 % (0-4); CK-MM (CK-isoenzymes) 100 % (96-100)
[2016-11-08 12:17] LABS: CK Total (Ck Isoenzymes) 24 U/L (20-200); CK-BB (CK isoenzymes) 0 % (0-0)
--- NOTE | 2016-11-08 14:24 | Discharge Summary ---
<Igor Marie - Last Filed: 11/08/16 14:21> Date of Encounter: 11/08/16 Time of Encounter: 14:22 - Discharge Diagnosis (1) CVA (cerebral vascular accident) Priority: Primary Status: Acute Qualifiers: CVA mechanism: unspecified Qualified Code(s): I63.9 - Cerebral infarction, unspecified (2) HTN (hypertension) Priority: Secondary Status: Chronic Qualifiers: Hypertension type: essential hypertension Qualified Code(s): I10 - Essential (primary) hypertension (3) Diabetes Priority: Secondary Status: Chronic Qualifiers: Diabetes mellitus type: type 2 Diabetes mellitus complication status: with unspecified complications Diabetes mellitus halfway insulin use: unspecified halfway insulin use status Qualified Code(s): E11.8 - Type 2 diabetes mellitus with unspecified complications - Discharge Medications Home Medications: Benzonatate [Tessalon] 100 mg PO TID PRN #30 capsule 09/11/16 [Rx] Carvedilol [Coreg] 6.25 mg PO BIDWM 11/05/16 [History] Citalopram [CeleXA] 20 mg PO DAILY 11/05/16 [History] Clopidogrel [Plavix] 75 mg PO DAILY 11/05/16 [History] Diltiazem [Cardizem] 30 mg PO Q8HR 11/05/16 [History] Divalproex (24 HR) [Depakote ER (24 HR)] 1,500 mg PO HS 11/05/16 [History] Famotidine [Pepcid] 20 mg PO DAILY 11/05/16 [History] Fesoterodine Fumarate [Toviaz] 8 mg PO DAILY 11/05/16 [History] Isosorbide MONOnitrate (24 HR) [Imdur] 30 mg PO DAILY 11/05/16 [History] Nitroglycerin [Nitrostat] 0.4 mg SL AD PRN 11/05/16 [History] Simvastatin [Zocor] 20 mg PO HS 11/05/16 [History] metFORMIN [Glucophage] 500 mg PO BIDWM 11/05/16 [History] Oxycodone HCl/Acetaminophen [Percocet 10-325 mg Tablet] 1 tab PO Q8H PRN #30 [Rx] Allergies/Adverse Reactions: Allergies lisinopril Adverse Reaction (Verified 09/11/16 19:12) Cough Procedures/tests Complete & Pending: Procedures Performed prior 72 hours Category Date Time Status CT head/brain wo con [CT] Routine Cat Scan 11/08/16 11:15 Completed EV carotid duplex imaging BI Routine Y 11/05/16 21:29 Completed EV echocardiogram Routine Y 11/07/16 07:00 Completed Date of admission: 11/05/16 19:53 Primary care physician: Gianluca Sanchez Consults: 11/05/16 20:34 Consult to Occupational Therapy [CONS] Routine Comment: Evaluate, develop and implement POC Reason for Consult: Patient has hx of TIAs and stroke in 2009 and now presents with left-sided weakness Consult to Physical Therapy [CONS] Routine Comment: Evaluate, develop and implement POC Reason for Consult: Patient has hx of TIAs and stroke in 2009 and now presents with left-sided weakness Consult to Speech Therapy [CONS] Routine Comment: Evaluate, develop and implement POC Reason for Consult: Patient has hx of TIAs and stroke in 2009 and now presents with left-sided weakness and some speech slurring Call Completed: No 11/08/16 10:34 Consult to Lapel Padder Blindstitch [CONS] Routine Reason for SW Consult: Pt already has home health, will need at home PT Discharging clinician: Igor Marie Anticipated date of discharge: 11/08/16 - Patient Status Disposition: Home Health Service Condition: Fair Functional capacity at discharge: uses cane/walker Overall status at discharge: patient is progressing back to baseline - Discharge Instructions Follow Up With: Gianluca Lynch MD [Primary Care Provider] - 11/15/16 1:00 pm (This appointment is scheduled with the nurse practitioner Luis Carlos Thomas.) Additional Instructions: Please follow up with your primary care physician 1 week. Please resume your home medications. Please participate in physical therapy. Please return for any new or worsening symptoms. - Diet and Activity Activity: as per physical therapy Diet: advance to your usual diet Interval History: Patient seen and examined at bedside. Patient states he feels pretty good today. He has no complaints at this time. He states his weakness on the left side is at about his baseline. Hospital course: Mr. Kovacs is a 71 year old male with history of CVA with residual left-sided deficits presented with confusion and worsening left-sided weakness. Upon presentation the patient had left-sided weakness and some mild difficulty in responding to. Initial head CT was negative. Further workup revealed an unremarkable echocardiogram, moderate stenosis of left ICA. Due to the fact that the patient has a pacemaker we are unable to obtain a brain MRI. Repeat head CT obtained prior to discharge did not show any evidence of acute infarction. Patient was seen and evaluated by physical therapy who recommended inpatient rehabilitation/swing bed. Patient is agreeable to go to swing bed at [facility]. Patient will be discharged to a swing bed in stable condition. - Time Spent with Patient Total time spent providing and/or coordinating discharge services: - Constitutional Vitals: Temp Pulse Resp BP Pulse Ox 97.9 F 68 14 102/66 90 11/08/16 12:08 11/08/16 12:08 11/08/16 12:08 11/08/16 12:08 11/08/16 12:08 General appearance: Present: cooperative, disheveled, A&O X 3, pleasant, no acute distress, obese, answers questions appropriately - Respiratory Respiratory exam: Present: CTAB. Absent: rales, rhonchi, wheezes - Cardiovascular Cardiovascular exam: Present: RRR. Absent: gallop, rubs, systolic murmur - GI/Abdominal GI/Abdominal exam: Present: normal bowel sounds, soft. Absent: distended, tenderness - Extremities Exam Extremities exam: Present: warm. Absent: pedal edema, tenderness - Neurological Exam Neurological exam: Present: alert, CN II-XII intact, oriented X3. Absent: no focal deficits (3 out of 5 muscle strength in the left upper and lower extremity. Patient states that his strength is at baseline.), facial droop, speech deficit <Chace Leon - Last Filed: 11/08/16 18:58> Date of Encounter: 11/08/16 Procedures/tests Complete & Pending: Procedures Performed prior 72 hours Category Date Time Status CT head/brain wo con [CT] Routine Cat Scan 11/08/16 11:15 Completed EV carotid duplex imaging BI Routine Y 11/05/16 21:29 Completed EV echocardiogram Routine Y 11/07/16 07:00 Completed Date of admission: 11/05/16 19:53 Primary care physician: Gianluca Sanchez Consults: 11/05/16 20:34 Consult to Occupational Therapy [CONS] Routine Comment: Evaluate, develop and implement POC Reason for Consult: Patient has hx of TIAs and stroke in 2010 and now presents with left-sided weakness Consult to Physical Therapy [CONS] Routine Comment: Evaluate, develop and implement POC Reason for Consult: Patient has hx of TIAs and stroke in 2010 and now presents with left-sided weakness Consult to Speech Therapy [CONS] Routine Comment: Evaluate, develop and implement POC Reason for Consult: Patient has hx of TIAs and stroke in 2010 and now presents with left-sided weakness and some speech slurring Call Completed: No 11/08/16 10:34 Consult to Lapel Padder Blindstitch [CONS] Routine Reason for SW Consult: Pt already has home health, will need at home PT - Patient Status Functional capacity at discharge: uses cane/walker Overall status at discharge: patient is progressing back to baseline - Diet and Activity Activity: as per physical therapy Hospital course: Mr. Kovacs is a 71 year old male - Time Spent with Patient Total time spent providing and/or coordinating discharge services: - Constitutional Vitals: Temp Pulse Resp BP Pulse Ox 97.6 F 78 16 104/80 90 11/08/16 15:00 11/08/16 15:00 11/08/16 15:00 11/08/16 15:00 11/08/16 12:08 - Attending Attestation I examined this patient and my medical decision-making was reviewed with the Resident Physician, Dr. Marie. I agree with the documented findings, disposition and treatment plan as described except to the extent set forth below. I have independently obtained history and examined the patient and my findings are summarized below: Patient's mental status has improved. His balance and strength is precarious due to chronic medical conditions. He has suffered a fall at home. PT OT recommended inpatient rehabilitation. I have discussed this with the patient and his . I strongly recommended inpatient rehabilitation. They refused to go to rehabilitation. They understand and assume the risk of increased falls with injury and possible rehospitalization. We will discharge the patient to home with home health. On exam he is awake alert oriented. Heart is regular, lungs are clear. There is no gross focal neurological deficit.
--- NOTE | 2016-11-08 14:37 | Physician Discharge Referral ---
ExtendedCare Referral Info Transfer To: [facility] Provider in Charge after Transfer: PCP Institutional Level of Care: Skilled - Diagnosis (1) CVA (cerebral vascular accident) Priority: Primary Status: Acute (2) HTN (hypertension) Priority: Secondary Status: Chronic (3) Diabetes Priority: Secondary Status: Chronic Prognosis: Fair Aware of Diagnosis: Patient Aware of Prognosis: Patient - Transfer Medications Home Medications: Benzonatate [Tessalon] 100 mg PO TID PRN #30 capsule 09/11/16 [Rx] Carvedilol [Coreg] 6.25 mg PO BIDWM 11/05/16 [History] Citalopram [CeleXA] 20 mg PO DAILY 11/05/16 [History] Clopidogrel [Plavix] 75 mg PO DAILY 11/05/16 [History] Diltiazem [Cardizem] 30 mg PO Q8HR 11/05/16 [History] Divalproex (24 HR) [Depakote ER (24 HR)] 1,500 mg PO HS 11/05/16 [History] Famotidine [Pepcid] 20 mg PO DAILY 11/05/16 [History] Fesoterodine Fumarate [Toviaz] 8 mg PO DAILY 11/05/16 [History] Isosorbide MONOnitrate (24 HR) [Imdur] 30 mg PO DAILY 11/05/16 [History] Nitroglycerin [Nitrostat] 0.4 mg SL AD PRN 11/05/16 [History] Simvastatin [Zocor] 20 mg PO HS 11/05/16 [History] metFORMIN [Glucophage] 500 mg PO BIDWM 11/05/16 [History] Oxycodone HCl/Acetaminophen [Percocet 10-325 mg Tablet] 1 tab PO Q8H PRN #30 [Rx] Allergies/Adverse Reactions: Allergies lisinopril Adverse Reaction (Verified 09/11/16 19:12) Cough - Respiratory Orders None Smoking Cessation: Smoking cessation has been advised. For more information, call the [place] Tobacco Quit Line at 1-065-APVO-NOW. - Ancillary Orders May use pressure relief devices daily prn - Advance Directives Living Will: No Power of Digital Project Manager: No Code Status: Full Code - Mobility Orders Ambulate (as per PT) - Rehabiliation Orders Rehab Potential: Fair Rehab Orders: ROM Exercises, Evaluation for Physical Therapy, Evaluation for Occupational Therapy, Evaluation for Speech Therapy - Treatments Skin tear care topically daily PRN per policy - Diet Orders Regular CERTIFICATION: I certify that the transfer of the above named patient to an Extended Care Facility is necessary for the continuing treatment of the diagnosis listed. The above information is true and accurate reflection of patient's current condition. Confidential - Redisclosure prohibited without a patient's written consent.
--- NOTE | 2016-11-08 15:06 | Carotid Imaging Report ---
Carotid Duplex Patient Name:Sav Kovacs Order Number:[id number] Procedure Date:11/06/2016 Date:8Age:71 yrs Gender:Male Lt BP:125 / 70 mmHg Rt.BP:125 / 70 mmHgHeart Rate: Location:[facility] Room #: 3B31 Drill Runner Helper:Felipa Nair, RVT, RDCS Referring MD:Sal Malagon, REGULATOR PIN INSERTER scrubber machine tender:None Reading MD:Kemal Sharp MD , FACS Primary Indications:stroke symptoms Risk Factors Yes/No Hypertension Yes Diabetes Yes Hypercholesterolemia Yes Smoking Current No Hx of CVA Yes Impressions: Findings: Right carotid system has nonstenotic plaque. Findings: Left proximal ICA has a moderate, 40-59% stenosis. Findings Carotid Duplex: Right: The right proximal common carotid artery has a PSV of 58 cm/s and a EDV of 11 cm/s. The right mid common carotid artery has a PSV of 58 cm/s and a EDV of 11 cm/s. The right distal common carotid artery has a PSV of 74 cm/s and a EDV of 11 cm/s. The right bifurcation has a PSV of 77 cm/s and a EDV of 11 cm/s. There is smooth heterogeneous plaque. The right proximal internal carotid artery has a PSV of 42 cm/s and a EDV of 7 cm/s. There is smooth heterogeneous plaque. The right mid internal carotid artery has a PSV of 41 cm/s and a EDV of 12 cm/s. The right distal internal carotid artery has a PSV of 41 cm/s and a EDV of 12 cm/s. The right eca has a PSV of 95 cm/s. The right vertebral artery has a PSV of 29 cm/s and a EDV of 7 cm/s. Left: The left proximal common carotid artery has a PSV of 108 cm/s and a EDV of 17 cm/s. The left mid common carotid artery has a PSV of 109 cm/s and a EDV of 15 cm/s. The left distal common carotid artery has a PSV of 80 cm/s and a EDV of 4 cm/s. The left bifurcation has a PSV of 83 cm/s and a EDV of 16 cm/s. There is smooth heterogeneous plaque. There is 40-59% stenosis in the left proximal internal carotid artery with a PSV of 119 cm/s and a EDV of 19 cm/s. There is smooth heterogeneous plaque. The left mid internal carotid artery has a PSV of 77 cm/s and a EDV of 22 cm/s. The left distal internal carotid artery has a PSV of 87 cm/s and a EDV of 22 cm/s. The left eca has a PSV of 88 cm/s and a EDV of 10 cm/s. The left vertebral artery has a PSV of 29 cm/s and a EDV of 5 cm/s. Carotid Results Right PSV EDV Assessment Proximal CCA 58 11 Mid CCA 58 11 Distal CCA 74 11 Bifurcation 77 11 Non Stenotic Plaque Proximal ICA 42 7 Non Stenotic Plaque Mid ICA 41 12 Distal ICA 41 12 ECA 95 0 Vertebral Artery 29 7 Left PSV EDV Assessment Proximal CCA 108 17 Mid CCA 109 15 Distal CCA 80 4 Bifurcation 83 16 Non Stenotic Plaque Proximal ICA 119 19 40-59% stenosis Mid ICA 77 22 Distal ICA 87 22 ECA 88 10 Vertebral Artery 29 5 Ratio's Right ICA/CCA Ratio: 0.72 Left ICA/CCA Ratio: 0.80 Updated by Kemal hSarp MD, FACS on 11/07/2016 9:22:04 AM Kemal Sharp MD electronically signed on 11/07/2016 9:22:40 AM with status of Final
--- NOTE | 2016-11-08 15:15 | Electrocardiograph Report ---
[place] [id number] Test Date: 2016-11-05 Pat Name: Sav Kovacs Department: 103 Room: 3B Gender: M [employer] Miller: : 1945 Requested By: Tai Cool Order Number: [id number] Reading MD: Candy Gorman Measurements Intervals [place] Rate: 60 P: -88 NE: 174 QRS: -23 QRSD: 106 T: 23 QT: 398 QTc: 398 Interpretive Statements ELECTRONIC ATRIAL PACEMAKER BORDERLINE LEFT AXIS DEVIATION ABNORMAL RHYTHM ECG Electronically Signed On 11-07-2016 22:13:33 EDT by Candy Gorman
--- NOTE | 2016-11-08 16:26 | Physician Discharge Referral ---
Home Health/Hosp Referral Info Transfer to: Home Health Provider in Charge Post Discharge: PCP - Respiratory Orders Oxygen / L per min Smoking Cessation: Smoking cessation has been advised. For more information, call the [place] Tobacco Quit Line at 4-666-SFQE-NOW. - Diet/Nutrition Diet/Nutrition Orders: Cardiac - Activity Activity Orders: Walker - Services Needed Following services are medically necessary services: Nursing, Home Health Aide, Physical Therapy, Occupational Therapy - Transfer Medications Home Medications: Benzonatate [Tessalon] 100 mg PO TID PRN #30 capsule 09/11/16 [Rx] Carvedilol [Coreg] 6.25 mg PO BIDWM 11/05/16 [History] Citalopram [CeleXA] 20 mg PO DAILY 11/05/16 [History] Clopidogrel [Plavix] 75 mg PO DAILY 11/05/16 [History] Diltiazem [Cardizem] 30 mg PO Q8HR 11/05/16 [History] Divalproex (24 HR) [Depakote ER (24 HR)] 1,500 mg PO HS 11/05/16 [History] Famotidine [Pepcid] 20 mg PO DAILY 11/05/16 [History] Fesoterodine Fumarate [Toviaz] 8 mg PO DAILY 11/05/16 [History] Isosorbide MONOnitrate (24 HR) [Imdur] 30 mg PO DAILY 11/05/16 [History] Nitroglycerin [Nitrostat] 0.4 mg SL AD PRN 11/05/16 [History] Simvastatin [Zocor] 20 mg PO HS 11/05/16 [History] metFORMIN [Glucophage] 500 mg PO BIDWM 11/05/16 [History] Oxycodone HCl/Acetaminophen [Percocet 10-325 mg Tablet] 1 tab PO Q8H PRN #30 [Rx] Allergies/Adverse Reactions: Allergies lisinopril Adverse Reaction (Verified 09/11/16 19:12) Cough Certification: Further, I certify that my clinical findings support that this patient is homebound (i.e. absences from home require considerable and taxing effort and are for medical reasons or christianity services or infrequently or short duration when for other reasons) because: Homebound Reason: Patient requires assistance of a person or device to safely leave home, Leaving home requires considerable and taxing effort due to condition, Altered mental status requiring supervision when leaving home Attestation: My signature below is to certify that this patient is under my care and that I, or nurse practitioner, or a physician's graduate teaching assistant working with me, has a face-to -face encounter with this patient.
[2016-11-08 16:40] VITALS: BP 104/80
--- NOTE | 2016-11-08 17:43 | Discharge Summary ---
Date of Encounter: 11/08/16 - Discharge Diagnosis (1) CVA (cerebral vascular accident) Status: Acute Qualifiers: CVA mechanism: unspecified Qualified Code(s): I63.9 - Cerebral infarction, unspecified (2) HTN (hypertension) Status: Chronic Qualifiers: Hypertension type: essential hypertension Qualified Code(s): I10 - Essential (primary) hypertension (3) Diabetes Status: Chronic Qualifiers: Diabetes mellitus type: type 2 Diabetes mellitus complication status: with unspecified complications Diabetes mellitus custodial insulin use: unspecified custodial insulin use status Qualified Code(s): E11.8 - Type 2 diabetes mellitus with unspecified complications - Discharge Medications Home Medications: Benzonatate [Tessalon] 100 mg PO TID PRN #30 capsule 09/11/16 [Rx] Carvedilol [Coreg] 6.25 mg PO BIDWM 11/05/16 [History] Citalopram [CeleXA] 20 mg PO DAILY 11/05/16 [History] Clopidogrel [Plavix] 75 mg PO DAILY 11/05/16 [History] Diltiazem [Cardizem] 30 mg PO Q8HR 11/05/16 [History] Divalproex (24 HR) [Depakote ER (24 HR)] 1,500 mg PO HS 11/05/16 [History] Famotidine [Pepcid] 20 mg PO DAILY 11/05/16 [History] Fesoterodine Fumarate [Toviaz] 8 mg PO DAILY 11/05/16 [History] Isosorbide MONOnitrate (24 HR) [Imdur] 30 mg PO DAILY 11/05/16 [History] Nitroglycerin [Nitrostat] 0.4 mg SL AD PRN 11/05/16 [History] Simvastatin [Zocor] 20 mg PO HS 11/05/16 [History] metFORMIN [Glucophage] 500 mg PO BIDWM 11/05/16 [History] Oxycodone HCl/Acetaminophen [Percocet 10-325 mg Tablet] 1 tab PO Q8H PRN #30 [Rx] Allergies/Adverse Reactions: Allergies lisinopril Adverse Reaction (Verified 09/11/16 19:12) Cough Procedures/tests Complete & Pending: Procedures Performed prior 72 hours Category Date Time Status CT head/brain wo con [CT] Routine Cat Scan 11/08/16 11:15 Completed EV carotid duplex imaging BI Routine Y 11/05/16 21:29 Completed EV echocardiogram Routine Y 11/07/16 07:00 Completed Date of admission: 11/05/16 19:53 Primary care physician: Gianluca Sanchez Consults: 11/05/16 20:34 Consult to Occupational Therapy [CONS] Routine Comment: Evaluate, develop and implement POC Reason for Consult: Patient has hx of TIAs and stroke in 2009 and now presents with left-sided weakness Consult to Physical Therapy [CONS] Routine Comment: Evaluate, develop and implement POC Reason for Consult: Patient has hx of TIAs and stroke in 2009 and now presents with left-sided weakness Consult to Speech Therapy [CONS] Routine Comment: Evaluate, develop and implement POC Reason for Consult: Patient has hx of TIAs and stroke in 2009 and now presents with left-sided weakness and some speech slurring Call Completed: No 11/08/16 10:34 Consult to Medical Laboratory Technicians [CONS] Routine Reason for SW Consult: Pt already has home health, will need at home PT - Patient Status Disposition: Transfer Inpatient Rehab Fac Condition: Fair - Discharge Instructions Follow Up With: Gianluca Lynch MD [Primary Care Provider] - 11/15/16 1:00 pm (This appointment is scheduled with the nurse practitioner Luis Carlos Thomas.) Additional Instructions: Please follow up with your primary care physician 1 week. Please resume your home medications. Please participate in physical therapy. Please return for any new or worsening symptoms. Hospital course: Mr. Kovacs is a 71 year old male - Time Spent with Patient Total time spent providing and/or coordinating discharge services: - Constitutional Vitals: Temp Pulse Resp BP Pulse Ox 97.6 F 78 16 104/80 90 11/08/16 15:00 11/08/16 15:00 11/08/16 15:00 11/08/16 15:00 11/08/16 12:08 General appearance: Present: cooperative, disheveled, A&O X 3, pleasant, no acute distress, obese, answers questions appropriately
== END 2016-11-08 18:14 | disposition home health service (06) ==
LOC: 3BNU 16:52 → EMEROO 16:52 → SUATTDRO 19:53 → MERGE 19:53 → 3BNU 20:13
PROVIDERS: ADMIT Internal Medicine; ATTEND Internal Medicine

== ENCOUNTER 2019-08-16 12:57 | Observation (INO) ==
[2019-08-16] MEDS ORDERED: Isovue-370 500 ML BOTTLE IVP ONE (13:11)
[2019-08-16 13:45] LABS: Basophils % 0.6 %; Eosinophils # 0.3 K/mcL (0.0-0.6); Eosinophils % 4.7 %; Hematocrit 36.5 % (37.5-50.1); Hemoglobin 12.7 g/dL (12.9-16.9); Immature Granulocytes % 0.3 % (0-4); Lymphocytes # 1.1 K/mcL (0.6-4.6); Lymphocytes % 17.6 %; Mean Corpuscular HGB Conc 34.8 g/dL (31.6-35.5); Mean Corpuscular Hemoglobin 30.3 pg (28.0-33.3); Mean Corpuscular Volume 87.1 fL (83.0-100.0); Mean Platelet Volume 10.3 fL (9.4-12.4); Monocytes # 0.7 K/mcL (0.0-1.3); Monocytes % 11.3 %; Neutrophils # 4.2 K/mcL (1.6-8.9); Platelet Count 190 K/mcL (140-400); Red Blood Count 4.19 M/mcL (4.19-5.50); Red Cell Distribution Width 13.6 % (11.5-14.5); Segmented Neutrophils % 65.5 %; White Blood Count 6.4 K/mcL (4.3-11.1)
[2019-08-16 14:15] LABS: BUN/Creatinine Ratio 16 (6-26); Blood Urea Nitrogen 17 mg/dL (8-23); Calcium 9.1 mg/dL (8.6-10.3); Carbon Dioxide 25 mEq/L (23-29); Chloride 104 mEq/L (98-107); Glucose 115 mg/dL (70-105); Osmolality,Calculated 282 (280-300); Potassium 4.8 mEq/L (3.5-5.1); Sodium 135 mEq/L (136-145); Troponin I < 0.03 ng/mL (< 0.04); Valproate < 4 mcg/mL (50-100); eGFR For African Americans > 60 (> 60); eGFR For Non-African Americans > 60 (> 60)
[2019-08-16] MEDS ORDERED: 0.9 % Sodium Chloride 1,000 ML IVC ONE (14:52)
[2019-08-16] MEDS ORDERED: Mag Hydrox/Al Hydrox/Simeth 30 ML UDC PO PRN (17:07)
[2019-08-16] MEDS ORDERED: *HR* Promethazine 25 MG/ML VIAL IVP PRN (17:07)
[2019-08-16] MEDS ORDERED: MOM Conc 10 ML UD.LIQ PO PRN (17:07)
[2019-08-16] MEDS ORDERED: Acetaminophen 325 MG TABLET PO PRN (17:07)
[2019-08-16] MEDS ORDERED: Naloxone 0.4 MG/ML INJ IVP PRN (17:07)
[2019-08-16] MEDS ORDERED: *HR* HYDROcodone/Acet 5/325 mg TABLET PO PRN (17:07)
[2019-08-16] MEDS ORDERED: Ondansetron 4 MG/2 ML VIAL IVP PRN (17:07)
[2019-08-16] MEDS ORDERED: Dextrose Gel 15 GM/37.5 ML TUBE PO PRN ×2 (17:55)
[2019-08-16] MEDS ORDERED: D5% in Water 1,000 ML IVC PRN (17:55)
[2019-08-16] MEDS ORDERED: *HR* Dextrose 50 % in Water (Syg) 50 ML SYRINGE IVP PRN (17:55)
[2019-08-16 18:15] LABS: C-Reactive Protein 42 mg/L (Less than 10)
[2019-08-16 18:36] LABS: Thyroid Stimulating Hormone 1.301 mcIU/mL (0.340-5.600)
[2019-08-16] MEDS ORDERED: Perflutren Lipid Microsphere 1.3 ML in 0.9 % Sodium Chloride 8.7 ML IVP ONE (20:58)
[2019-08-16] MEDS: Insulin LISPRO 300 UNITS/3 ML VIAL SQ SCH (21:13)
[2019-08-17 00:56] LABS: Bilirubin,Urine Negative (Negative); Blood,Urine Moderate (Negative); Clarity,Urine Turbid (Clear); Color,Urine Yellow (Yellow); Glucose,Urine (UA) Normal (Normal); Ketones,Urine Negative (Negative); Leukocyte Esterase,Urine Large (Negative); Nitrite,Urine Positive (Negative); Protein,Urine 30 mg/dL (Neg-Trace); Specific Gravity,Urine > 1.030 (1.010-1.025); Urobilinogen,Urine Normal (Normal)
[2019-08-17 00:59] LABS: Bacteria,Urine Many per hpf (None-Few); Squamous Epithelial Cell,Urine Many per lpf (None-Few); WBC,Urine TNTC per hpf (0-3)
[2019-08-17 01:03] LABS: Amphetamine Screen,Urine Negative ng/mL (Cutoff=1000); Barbiturate Screen,Urine Negative ng/mL (Cutoff=200); Benzodiazepines Screen,Urine Negative ng/mL (Cutoff=200); Cannabinoid Screen,Urine Negative ng/mL (Cutoff = 50); Cocaine Screen,Urine Negative ng/mL (Cutoff= 300); Opiate Screen,Urine Negative ng/mL (Cutoff=300); Phencyclidine Screen,Urine Negative ng/mL (Cutoff=25)
[2019-08-17 02:08] LABS: Basophils % 0.4 %; Eosinophils # 0.3 K/mcL (0.0-0.6); Hematocrit 32.9 % (37.5-50.1); Hemoglobin 11.3 g/dL (12.9-16.9); Immature Granulocytes % 0.2 % (0-4); Lymphocytes # 1.1 K/mcL (0.6-4.6); Lymphocytes % 21.7 %; Mean Corpuscular HGB Conc 34.3 g/dL (31.6-35.5); Mean Corpuscular Hemoglobin 30.6 pg (28.0-33.3); Mean Corpuscular Volume 89.2 fL (83.0-100.0); Mean Platelet Volume 10.7 fL (9.4-12.4); Monocytes # 0.6 K/mcL (0.0-1.3); Monocytes % 12.2 %; Neutrophils # 2.9 K/mcL (1.6-8.9); Platelet Count 162 K/mcL (140-400); Red Blood Count 3.69 M/mcL (4.19-5.50); Red Cell Distribution Width 13.6 % (11.5-14.5); Segmented Neutrophils % 59.5 %; White Blood Count 4.8 K/mcL (4.3-11.1)
[2019-08-17 02:22] LABS: Alanine Aminotransferase 5 Units/L (7-52); Albumin 3.6 g/dL (3.5-5.7); Albumin/Globulin Ratio 1.5 (1.1-2.2); Alkaline Phosphatase 71 Units/L (34-104); Aspartate Amino Transferase 9 Units/L (13-39); BUN/Creatinine Ratio 16 (6-26); Bilirubin,Total 0.6 mg/dL (0.3-1.0); Blood Urea Nitrogen 15 mg/dL (8-23); Calcium 8.6 mg/dL (8.6-10.3); Carbon Dioxide 25 mEq/L (23-29); Chloride 106 mEq/L (98-107); Chol/HDL Ratio 2.5 (0-4.9); Cholesterol 82 mg/dL (< 200); Globulin 2.4 g/dL (2.4-3.5); Glucose 91 mg/dL (70-105); HDL Cholesterol 33 mg/dL (40-59); LDL Cholesterol,Calculated 23 mg/dL (0-99); Magnesium 1.9 mg/dL (1.6-2.6); Osmolality,Calculated 282 (280-300); Phosphorous 3.5 mg/dL (2.7-4.5); Potassium 4.5 mEq/L (3.5-5.1); Sodium 136 mEq/L (136-145); Triglycerides 129 mg/dL (< 150); eGFR For African Americans > 60 (> 60); eGFR For Non-African Americans > 60 (> 60)
[2019-08-17] MEDS ORDERED: *HR* Heparin 5,000 UNIT/ML VIAL SQ SCH (06:00)
[2019-08-17] MEDS: Aspirin Enteric Coated 81 MG Tablet PO SCH (07:32)
[2019-08-17] MEDS: Insulin LISPRO 300 UNITS/3 ML VIAL SQ SCH ×4 (07:34→21:01)
[2019-08-17] MEDS ORDERED: Acetaminophen 325 MG TABLET PO PRN (08:58)
[2019-08-17] MEDS: cefTRIAXone 1,000 MG in 0.9 % Sodium Chloride Mini Bag 100 ML IVPB SCH (11:06)
[2019-08-18] MEDS: cefTRIAXone 1,000 MG in 0.9 % Sodium Chloride Mini Bag 100 ML IVPB SCH (08:05)
[2019-08-18] MEDS: Aspirin Enteric Coated 81 MG Tablet PO SCH (08:05)
[2019-08-18] MEDS: Insulin LISPRO 300 UNITS/3 ML VIAL SQ SCH ×4 (08:08→20:21)
[2019-08-18 09:25] LABS: Basophils % 0.8 %; Eosinophils # 0.3 K/mcL (0.0-0.6); Eosinophils % 5.5 %; Hematocrit 38.7 % (37.5-50.1); Immature Granulocytes % 0.4 % (0-4); Lymphocytes # 1.2 K/mcL (0.6-4.6); Lymphocytes % 23.2 %; Mean Corpuscular HGB Conc 33.6 g/dL (31.6-35.5); Mean Corpuscular Hemoglobin 29.7 pg (28.0-33.3); Mean Corpuscular Volume 88.4 fL (83.0-100.0); Mean Platelet Volume 10.3 fL (9.4-12.4); Monocytes # 0.6 K/mcL (0.0-1.3); Monocytes % 11.8 %; Neutrophils # 3.1 K/mcL (1.6-8.9); Platelet Count 192 K/mcL (140-400); Red Blood Count 4.38 M/mcL (4.19-5.50); Red Cell Distribution Width 13.3 % (11.5-14.5); Segmented Neutrophils % 58.3 %; White Blood Count 5.3 K/mcL (4.3-11.1)
[2019-08-18 09:42] LABS: BUN/Creatinine Ratio 13 (6-26); Blood Urea Nitrogen 12 mg/dL (8-23); Calcium 9.3 mg/dL (8.6-10.3); Carbon Dioxide 22 mEq/L (23-29); Chloride 107 mEq/L (98-107); Glucose 157 mg/dL (70-105); Osmolality,Calculated 289 (280-300); Potassium 4.1 mEq/L (3.5-5.1); Sodium 138 mEq/L (136-145); eGFR For African Americans > 60 (> 60); eGFR For Non-African Americans > 60 (> 60)
[2019-08-19] MEDS: cefTRIAXone 1,000 MG in 0.9 % Sodium Chloride Mini Bag 100 ML IVPB SCH (08:22)
[2019-08-19] MEDS: Insulin LISPRO 300 UNITS/3 ML VIAL SQ SCH ×4 (08:22→21:32)
[2019-08-19] MEDS: Metoprolol 100 MG TABLET PO SCH ×2 (08:22→20:25)
[2019-08-19] MEDS: Aspirin Enteric Coated 81 MG Tablet PO SCH (08:23)
[2019-08-19] MEDS: Ranolazine 500 MG TAB.ER.12H PO SCH ×2 (08:23→20:25)
[2019-08-20] MEDS: Insulin LISPRO 300 UNITS/3 ML VIAL SQ SCH (07:35)
[2019-08-20] MEDS: Metoprolol 100 MG TABLET PO SCH (08:39)
[2019-08-20] MEDS: Aspirin Enteric Coated 81 MG Tablet PO SCH (08:39)
[2019-08-20] MEDS: cefTRIAXone 1,000 MG in 0.9 % Sodium Chloride Mini Bag 100 ML IVPB SCH (08:39)
[2019-08-20] MEDS: Ranolazine 500 MG TAB.ER.12H PO SCH (08:39)
[2019-08-20 10:38] VITALS: BP 139/80
== END 2019-08-20 12:31 | disposition home health service (06) ==
LOC: 3ANU 12:57 → EMEROOARM 12:57 → SUATTDRO 16:49 → 3ANU 18:47
PROVIDERS: ADMIT Internal Medicine; ATTEND Internal Medicine

== ENCOUNTER 2019-10-31 18:19 | Observation (INO) ==
[2019-10-31 19:04] LABS: INR 1.1; Prothrombin Time 12.8 Seconds (9.4-12.1)
[2019-10-31 19:06] LABS: Basophils % 0.6 %; Eosinophils # 0.2 K/mcL (0.0-0.6); Eosinophils % 2.7 %; Hematocrit 37.6 % (37.5-50.1); Hemoglobin 13.1 g/dL (12.9-16.9); Immature Granulocytes % 0.4 % (0-4); Lymphocytes # 1.7 K/mcL (0.6-4.6); Lymphocytes % 23.9 %; Mean Corpuscular HGB Conc 34.8 g/dL (31.6-35.5); Mean Corpuscular Hemoglobin 30.2 pg (28.0-33.3); Mean Corpuscular Volume 86.6 fL (83.0-100.0); Mean Platelet Volume 10.2 fL (9.4-12.4); Monocytes # 0.7 K/mcL (0.0-1.3); Monocytes % 9.8 %; Neutrophils # 4.5 K/mcL (1.6-8.9); Platelet Count 235 K/mcL (140-400); Red Blood Count 4.34 M/mcL (4.19-5.50); Red Cell Distribution Width 12.5 % (11.5-14.5); Segmented Neutrophils % 62.6 %; White Blood Count 7.2 K/mcL (4.3-11.1)
[2019-10-31 19:07] LABS: Activated Partial Thrombo Time 31.1 Seconds (26.0-36.0)
[2019-10-31 19:25] LABS: Alanine Aminotransferase 7 Units/L (7-52); Albumin 4.2 g/dL (3.5-5.7); Albumin/Globulin Ratio 1.4 (1.1-2.2); Alkaline Phosphatase 85 Units/L (34-104); Aspartate Amino Transferase 10 Units/L (13-39); BUN/Creatinine Ratio 16 (6-26); Bilirubin,Direct 0.1 mg/dL (0.0-0.2); Bilirubin,Indirect 0.4 mg/dL (0.0-1.0); Bilirubin,Total 0.5 mg/dL (0.3-1.0); Blood Urea Nitrogen 17 mg/dL (8-23); Calcium 9.2 mg/dL (8.6-10.3); Carbon Dioxide 24 mEq/L (23-29); Chloride 102 mEq/L (98-107); Glucose 111 mg/dL (70-105); Lipase 27 Units/L (11-82); Osmolality,Calculated 280 (280-300); Potassium 4.9 mEq/L (3.5-5.1); Sodium 134 mEq/L (136-145); Total Protein 7.2 g/dL (6.4-8.9); Troponin I 0.05 ng/mL (< 0.04); eGFR For African Americans > 60 (> 60); eGFR For Non-African Americans > 60 (> 60)
[2019-10-31] MEDS ORDERED: Isovue-370 500 ML BOTTLE IVP ONE (20:03)
[2019-10-31] MEDS ORDERED: Azithromycin 500 MG in 0.9 % Sodium Chloride 250 ML IVPB ONE (21:25)
[2019-10-31] MEDS ORDERED: Piperacillin/Tazobactam 3.375 GM in 0.9 % Sodium Chloride Mini Bag 100 ML IVPB ONE (21:25)
[2019-10-31] MEDS ORDERED: Naloxone 0.4 MG/ML INJ IVP PRN (22:00)
[2019-10-31] MEDS ORDERED: Nitroglycerin 0.4 MG TAB.SUBL SL PRN (22:21)
[2019-10-31] MEDS ORDERED: Dextrose Gel 15 GM/37.5 ML TUBE PO PRN ×2 (22:21)
[2019-10-31] MEDS ORDERED: D5% in Water 1,000 ML IVC PRN (22:21)
[2019-10-31] MEDS ORDERED: *HR* Dextrose 50 % in Water (Vial) 50 ML VIAL IVP PRN (22:21)
[2019-10-31] MEDS ORDERED: *HR* OxyCODONE/APAP 10/325 TABLET PO PRN (22:21)
[2019-10-31 23:05] LABS: Adenovirus Not Detected (Not Detect); Bordetella Pertussis Not Detected (Not Detect); Chlamydophila pneumoniae Not Detected (Not Detect); Coronavirus 229E Not Detected (Not Detect); Coronavirus HKU1 Not Detected (Not Detect); Coronavirus NL63 Not Detected (Not Detect); Coronavirus OC43 Not Detected (Not Detect); Human Metapneumovirus Not Detected (Not Detect); Human Rhinovirus/Enterovirus DETECTED (Not Detect); Influenza A Subtype 2009 H1 Not Detected (Not Detect); Influenza B Not Detected (Not Detect); Mycoplasma pneumoniae Not Detected (Not Detect); Parainfluenza Virus 1 Not Detected (Not Detect); Parainfluenza Virus 2 Not Detected (Not Detect); Parainfluenza Virus 3 Not Detected (Not Detect); Parainfluenza Virus 4 Not Detected (Not Detect); Respiratory Syncytial Virus Not Detected (Not Detect)
[2019-10-31 23:07] LABS: SARS-CoV-2 Not Detected (Not Detect)
[2019-11-01 01:04] LABS: Basophils % 0.2 %; Eosinophils # 0.2 K/mcL (0.0-0.6); Hematocrit 38.7 % (37.5-50.1); Hemoglobin 13.1 g/dL (12.9-16.9); Immature Granulocytes % 0.4 % (0-4); Lymphocytes # 1.7 K/mcL (0.6-4.6); Lymphocytes % 30.3 %; Mean Corpuscular HGB Conc 33.9 g/dL (31.6-35.5); Mean Corpuscular Volume 88.6 fL (83.0-100.0); Mean Platelet Volume 10.3 fL (9.4-12.4); Monocytes # 0.5 K/mcL (0.0-1.3); Monocytes % 8.8 %; Neutrophils # 3.1 K/mcL (1.6-8.9); Platelet Count 199 K/mcL (140-400); Red Blood Count 4.37 M/mcL (4.19-5.50); Red Cell Distribution Width 12.4 % (11.5-14.5); Segmented Neutrophils % 56.3 %; White Blood Count 5.5 K/mcL (4.3-11.1)
[2019-11-01] MEDS: *HR* Heparin 5,000 UNIT/ML VIAL SQ SCH ×2 (01:11→05:16)
[2019-11-01 01:24] LABS: Alanine Aminotransferase 6 Units/L (7-52); Albumin/Globulin Ratio 1.4 (1.1-2.2); Alkaline Phosphatase 79 Units/L (34-104); Aspartate Amino Transferase 10 Units/L (13-39); BUN/Creatinine Ratio 18 (6-26); Bilirubin,Total 0.4 mg/dL (0.3-1.0); Blood Urea Nitrogen 16 mg/dL (8-23); Calcium 8.8 mg/dL (8.6-10.3); Carbon Dioxide 21 mEq/L (23-29); Chloride 104 mEq/L (98-107); Globulin 2.8 g/dL (2.4-3.5); Glucose 219 mg/dL (70-105); Osmolality,Calculated 286 (280-300); Potassium 4.6 mEq/L (3.5-5.1); Sodium 134 mEq/L (136-145); Total Protein 6.8 g/dL (6.4-8.9); eGFR For African Americans > 60 (> 60); eGFR For Non-African Americans > 60 (> 60)
[2019-11-01 02:50] LABS: Bacteria,Urine Few per hpf (None-Few); Bilirubin,Urine Negative (Negative); Blood,Urine Negative (Negative); Clarity,Urine Clear (Clear); Color,Urine Light-Yellow (Yellow); Glucose,Urine (UA) 300 mg/dL (Normal); Hyaline Casts,Urine Few per lpf (None Seen); Ketones,Urine Negative (Negative); Leukocyte Esterase,Urine Negative (Negative); Mucus,Urine Few per lpf (None-Few); Nitrite,Urine Negative (Negative); Protein,Urine Negative (Neg-Trace); RBC,Urine 0-3 per hpf (0-3); Specific Gravity,Urine > 1.030 (1.010-1.025); Squamous Epithelial Cell,Urine Few per hpf (None-Few); Urobilinogen,Urine Normal (Normal); WBC,Urine 0-3 per hpf (0-3)
[2019-11-01] MEDS: Insulin LISPRO 300 UNITS/3 ML VIAL SQ SCH ×2 (08:56→13:01)
[2019-11-01] MEDS ORDERED: amLODIPine 5 MG TABLET PO SCH (09:00)
[2019-11-01] MEDS ORDERED: cefTRIAXone 1,000 MG in Water for inj. (sterile) 10 ML IVP SCH (09:00)
[2019-11-01] MEDS ORDERED: Metoprolol 100 MG TABLET PO SCH (09:00)
[2019-11-01] MEDS ORDERED: Aspirin Enteric Coated 81 MG Tablet PO SCH (09:00)
[2019-11-01] MEDS ORDERED: Isosorbide MONOnitrate (24 HR) 30 MG TAB.ER.24H PO SCH (09:00)
[2019-11-01] MEDS ORDERED: Ranolazine 500 MG TAB.ER.12H PO SCH (09:00)
[2019-11-01 10:51] VITALS: BP 107/51
[2019-11-01] MEDS ORDERED: Azithromycin 500 MG in 0.9 % Sodium Chloride 250 ML IVPB SCH (18:00)
== END 2019-11-01 14:42 | disposition home health service (06) ==
LOC: 3BNU 18:19 → EMEROOARM 18:19 → SUATTDRO 21:43 → 3BNU 23:53
PROVIDERS: ADMIT Internal Medicine; ATTEND Internal Medicine